=== PATIENT | male | born 1970 | race Caucasian/White ===

== ENCOUNTER → 2020-03-18 | Outpatient (CLI) | payer BC ==
[~2020-03-18] MED LIST: ALDACTONE 25MG25 MG PO; ALLEGRA ALLERG180 MG PO; AMLODIPINE BESYL5 MG PO; ASPIRIN81 MG PO; COZAAR 50MG TAB50 MG PO; GABAPENTIN300 MG PO; GLUCOPHAGE 500500 MG PO; HYDROCHLOROTH12.5 MG PO; JANUVIA100 MG PO; KEPPRA500 MG PO; LEVOTHYROXINE25 MC1 PO; NIACIN ER500 MG PO; PERCOCET 10-321 EACH PO; POTASSIUM99 M1 PO; PROTONIX40 MG PO; VASCEPA1 GM PO
== END ==
LOC: EMI 09:00
DX: R56.9 Unspecified convulsions (principal); R90.89 Other abnormal findings on diagnostic imaging of central nervous system
CPT/HCPCS: 70553; A9577

== ENCOUNTER 2020-08-13 13:47 | Emergency (ER) | payer BC | END 2020-08-13 15:30 | disposition left against medical advice (07) | LOC: ER1 13:47 | DX: Z53.21 Procedure and treatment not carried out due to patient leaving prior to being seen by health care provider (principal) | CPT/HCPCS: 93005; J2405 ==

== ENCOUNTER 2020-08-13 18:02 | Inpatient (IN) | payer BC, MEDICARE ==
[~2020-08-13] VITALS: Ht 175.3 cm; Wt 94.3 kg
[2020-08-13 19:08] LABS: HEMOGLOBIN 17.1 gm/dl (14.0-17.5); RED BLOOD COUNT 5.43 M/UL (4.20-5.50); WHITE BLOOD COUNT 10.2 K/UL (4.5-11.0)
[2020-08-13 19:49] LABS: BUN/CREATININE RATIO 19 (0-10)
[2020-08-14 01:09] LABS: RED BLOOD COUNT 5.13 M/UL (4.20-5.50)
[2020-08-14 01:29] LABS: BUN/CREATININE RATIO 19 (0-10)
[2020-08-14 07:24] LABS: HEMOGLOBIN 15.7 gm/dl (14.0-17.5); WHITE BLOOD COUNT 10.4 K/UL (4.5-11.0)
[2020-08-14 07:51] LABS: BUN/CREATININE RATIO 20 (0-10)
== END 2020-08-15 11:45 | disposition left against medical advice (07) | DRG 304 ==
LOC: ER1 18:02 → CDU 21:55 → CCU 21:55
PROVIDERS: Physician Assistant; ADMIT Internal Medicine
DX: I16.1 Hypertensive emergency (principal); I67.83 Posterior reversible encephalopathy syndrome; I16.9 Hypertensive crisis, unspecified; G93.49 Other encephalopathy; Z20.822 Contact with and (suspected) exposure to COVID-19; I10 Essential (primary) hypertension; G40.909 Epilepsy, unspecified, not intractable, without status epilepticus; E66.9 Obesity, unspecified; F12.10 Cannabis abuse, uncomplicated; H53.8 Other visual disturbances; M34.1 CR(E)ST syndrome; G89.29 Other chronic pain; E78.5 Hyperlipidemia, unspecified; E11.9 Type 2 diabetes mellitus without complications; Z91.14 Patient's other noncompliance with medication regimen; Z79.82 Long term (current) use of aspirin; Z79.01 Long term (current) use of anticoagulants; Z83.3 Family history of diabetes mellitus; Z68.30 Body mass index [BMI] 30.0-30.9, adult
CPT/HCPCS: 36415; 70450; 70551; 71045; 80048; 80053; 80061; 80307; 81001; 82140; 82550; 82553; 82962; 83036; 83605; 83735; 83874; 84100; 84439; 84443; 84484; 85025; 87040; 87086; 93005; 96365; 96375; 99285; J1650; J2060; J2405; U0002

== ENCOUNTER → 2021-04-15 | Outpatient (CLI) | payer BC | LOC: KOH-I 13:03 | DX: R07.89 Other chest pain (principal) | CPT/HCPCS: 71046 ==

== ENCOUNTER → 2021-04-22 | Day surgery (SDC) | payer BC ==
[~2021-04-22] MED LIST changes: +BISOPROLOL-HCT1 EACH PO; +FISH OIL 1,0001 EACH PO
== END | disposition home or self-care (01) ==
LOC: OR 07:07
DX: D12.0 Benign neoplasm of cecum (principal); K52.9 Noninfective gastroenteritis and colitis, unspecified; K64.1 Second degree hemorrhoids; E03.9 Hypothyroidism, unspecified; I10 Essential (primary) hypertension; K21.9 Gastro-esophageal reflux disease without esophagitis; E11.9 Type 2 diabetes mellitus without complications; E66.3 Overweight; Z68.29 Body mass index [BMI] 29.0-29.9, adult; Z88.6 Allergy status to analgesic agent; Z88.2 Allergy status to sulfonamides; Z88.8 Allergy status to other drugs, medicaments and biological substances; Z88.5 Allergy status to narcotic agent; Z79.84 Long term (current) use of oral hypoglycemic drugs; Z79.899 Other long term (current) drug therapy; Z20.822 Contact with and (suspected) exposure to COVID-19
CPT/HCPCS: 82962; J2001; J2704; J7040

== ENCOUNTER → 2021-07-27 | Outpatient (CLI) | payer BC | LOC: KOH-I 15:09 | DX: M54.50 Low back pain, unspecified (principal); W19.XXXA Unspecified fall, initial encounter | CPT/HCPCS: 72070; 72100 ==

== ENCOUNTER → 2021-10-14 | Outpatient (CLI) | payer BC | LOC: EMI 10:21 | DX: M51.27 Other intervertebral disc displacement, lumbosacral region (principal); M51.36 Other intervertebral disc degeneration, lumbar region | CPT/HCPCS: 72148 ==